=== PATIENT | male | born 1990 | race Caucasian/White ===

== ENCOUNTER 2025-05-28 12:42 | Emergency (ER) | payer OTHER ==
[~2025-05-28] VITALS: Ht 177.8 cm; Wt 81.8 kg
[2025-05-28 12:59] VITALS: TEMP 97.8
--- NOTE | 2025-05-28 13:12 | Physician Documentation ---
History of Present Illness ~ Chief Complaint: Dizziness Stated Complaint: FACE TINGLING/DIZZY Time Seen by MD: 14:43 HPI This is a 35-year-old male who presents for feeling of dizziness and an episode of sudden onset left-sided vision change and facial tingling. Patient reports that he was sitting when he experienced vision change to his left eye described as large cain spot in my vision that moved around and left side of my face was tingling and flushed. Patient reports that he stood up and felt extremely dizzy, patient reports dizziness as imbalance with movement and worse when trying to walk. Patient reports history of open heart surgery nine months prior due to enlarged aortic root, patient additionally reports history of chronic dizziness due to an neurologic condition, reports dizziness today is much worse than normal dizziness. Past Medical History Past Medical History: *CARDIOVASCULAR* Past Surgical History: other (Aortic root repair) Review of Systems ROS As stated above in the HPI, otherwise all systems are reviewed and negative. Physical Exam Vital Signs: Temperature: 97.8, Source: Temporal, Heart Rate: 88, Respiratory Rate: 18, BP: 125/81, Pulse Oximetry: 98, Weight: 81.820 Physical Exam VITALS: Reviewed and as above. GENERAL: Alert, nontoxic appearing, no apparent distress. HEENT: PERRLA, EOMI RESPIRATORY: No increased work of breathing, no respiratory distress, speaking in full clear sentences CHEST: CV: BACK: GI: MUSCULOSKELETAL: SKIN: NEURO: Alert and oriented x 4, GCS 15. Normal muscle strength and tone. Normal finger to nose coordination, speech clear, and normal gait. Negative Romberg, no pronator drift. Visual zavaleta intact PSYCH: . Progress Results/Orders Results/Orders Vital Signs 05/28/25 05/28/25 12:59 15:49 Temp 97.8 Pulse 88 88 Resp 18 18 B/P (MAP) 125/81 140/88 Pulse Ox 98 100 Medical Decision Making Findings I performed a bedside ultrasound of patient's left affected eye. Ultrasound did not indicate or show any signs of floating debris within the globe. Time we have essentially ruled out any signs or indication of retinal detachment.. Patient's symptoms have resolved. He is him to follow up with Ophthalmology in his primary care if he has any persistent symptoms. Differential Dx:Considerations: Include: anemia, CVA, dehydration, dysrhythmia, electrolyte imbalance, encephalopathy, Guillain-Crowley, hypoglycemia, hypotension, hypovolemia, labyrinthitis, Meniere's disease, myasathenia gravis, myocardial infarction, pulmonary embolus, renal failure, respiratory failure, TIA, VBI, vertigo central, vertigo peripheral, vestibular neuronitis, other Departure Disposition: 01 HOME / SELF CARE / HOMELESS Impression: Primary Impression: Dizziness Additional Impression: Vertigo Condition: Stable Discharge Instructions: Dizziness Referrals: NO PRIMARY CARE PROVIDER (PCP) Signature Scribe Signature: ace Attestation: Scribed for Sachin Casey Medical Billing Manager by Sachin Ulrich NP . 05/28/25 23:32 SANDOVAL WAYNE May 28, 2025 13:12 SACHIN CASEY NP May 28, 2025 15:32
--- NOTE | 2025-05-28 14:04 | ELECTROCARDIOGRAPH REPORT ---
[facility] Test Date: 2025-05-28 Test Time: 12:50:21 Pat Name: LIN JARVIS Department: EMERGENCY ROOM Room: Gender: M Motor Electrician: FELIX : 1990 Requested By: DEPARTMENT EMERGENCY Order Number: [id number] Reading MD: Measurements Intervals [place] Rate: 94 P: 72 MO: 167 QRS: 39 QRSD: 98 T: 40 QT: 346 QTc: 433 Interpretive Statements Sinus rhythm Please click the below link to view image of tracing.
[2025-05-28 15:49] VITALS: BP 140/88; PULSE 88; RESP 18; O2SAT 100
== END 2025-05-28 16:09 | disposition home or self-care (01) ==
LOC: ER 12:43
DX: R42 Dizziness and giddiness (principal); R20.2 Paresthesia of skin
CPT/HCPCS: 93005; 99284